=== PATIENT | male | born 1960 | race Caucasian/White ===

== ENCOUNTER 2024-05-18 12:46 | Emergency (ER) | payer BC, SELFPAY ==
[2024-05-18 12:48] VITALS: BP 145/101
--- NOTE | 2024-05-18 13:47 | ED.GENMED ---
History of Present Illness
General
Chief Complaint: Headache
Time Seen by Provider: 05/18/24 13:27
History of Present Illness
History of Present Illness:
Patient is a 64-year-old male with history of hypertension, hyperlipidemia presenting to the emergency department with a headache. Patient states that he has had a headache for the past 7 weeks. It is left-sided frontoparietal. It is constant 8
out of 10. It is a dull ache with occasional sharp pain. It has never been a thunderclap headache. Is not the worst headache of his life. He has been taking Celebrex for his headache. Does improve the pain though does not resolve it.
Occasionally he has photophobia. No phonophobia. No fevers or chills. No neck pain. No numbness or tingling. No weakness. No recent trauma. He has taken prednisone which did not alleviate the pain. He is currently having a headache though it
is bearable. He does have a prescription for outpatient CT scan however is unable to schedule it for many months.
Past History
Past History
ED Past Medical History: HTN, Hypercholesterolemia and Hypothyroidism (Hank's thyroiditis)
ED Past Surgical History: Other (N/A)
Social History
Tobacco: Non-smoker
Alcohol: Occasional
Personal:
Living: with family
Phy Exam
Physical Exam
Physical Exam:
GENERAL: in no acute distress
HEENT: normocephalic, extraocular movements intact, moist oral mucosa
NECK: normal inspection
RESPIRATORY: no respiratory distress, clear to auscultation bilaterally
CARDIOVASCULAR: regular rate and rhythm
ABDOMEN/: soft, non-distended, non-tender to palpation, no rebound or guarding
EXTREMITIES: non-tender, no edema/swelling
NEUROLOGIC: alert and oriented x 3, cranial nerves II-XII intact, right upper extremity strength 5/5, left upper extremity strength 5/5, right lower extremity strength 5/5, left lower extremity strength 5/5, normal sensation to light touch, normal
[id number] and [id number], gait not tested formally
SKIN: warm
Course
Orders/Labs/Results
Orders:
Orders
05/18/24 13:46
CT Head W/o Iv Contrast Urgent
Comment:
Reason For Exam: headache
Vital Signs
Initial and Last Documented VS:
Initial Vital Signs
Temp Pulse Resp BP Pulse Ox
98.3 F 103 18 145/101 94
05/18/24 12:48 05/18/24 12:48 05/18/24 12:48 05/18/24 12:48 05/18/24 12:48
Last Documented Vital Signs
Temp Pulse Resp BP Pulse Ox
98.3 F 98 18 141/82 94
05/18/24 12:48 05/18/24 14:00 05/18/24 12:48 05/18/24 14:00 05/18/24 12:48
MDM/Problems Addressed
Differential Diagnosis Includes:
Patient is a 64-year-old man with history of hypertension, hyperlipidemia presenting to the emergency department with headache. Vitals unremarkable and headache does not show any neurological deficits. Unclear cause of the migraine but likely
migraine versus tension type. No red flags. Neuroexam does not show any focal neurofindings or signs of manage amiss. History and exam not consistent with intracranial bleed. History exam also unlikely to be meningitis or brain abscess or
temporal arteritis. Given no visual deficits less likely to be acute angle closure glaucoma. I did offer patient blood work to make sure there is no metabolic derangement however he declined at this time. Will proceed with CT scan of the head. I
did offer patient a migraine cocktail however he does not want one at this time and would prefer to take his home Celebrex. Will reassess after CT scan.
*Critical Care Note
Total Time (30-74mins, 75-104mins- exclusive of procedures): Not Applicable
Update Note
Update Note:
CT scan is negative. Patient's pain has improved since the Celebrex. He is requesting discharge at this time with as appropriate. He will follow-up with PCP as well as neurology for outpatient MRI. Will discharge at this time.
ED Attending Note
-
Portions of this chart may have been created with voice recognition software.� Occasional wrong word or��sound alike� substitutions may have occurred due to the inherent limitations of voice recognition software.
Discharge Plan
Departure
Patient Disposition: Home (Routine Discharge)
Date of Disposition: 05/18/24
Time of Disposition: 15:18
Patient with high blood pressure during this ER visit?: No
Discharge Problem:
Headache
Instructions: Headache, Adult (DC)
Prescriptions:
No Action
metoprolol succinate 100 mg Tablet Extended Release 24 Hr
100 mg PO DAILY
amlodipine 10 mg Tablet
10 mg PO DAILY
vitamin B complex Tablet
1 tab PO DAILY
allopurinol 300 mg Tablet
300 mg PO DAILY
hydrochlorothiazide 25 mg Tablet
25 mg PO DAILY
testosterone 1 % (25 mg/2.5gram) Gel In Packet
1 packet TRANSDERMAL DAILY
levothyroxine 112 mcg Tablet
224 mcg PO DAILY
rosuvastatin 20 mg Tablet
20 mg PO DAILY
turmeric root extract 500 mg Capsule
500 mg PO DAILY
Referrals:
Basim Chu DO [Family Provider] -
Activity Restrictions/Additional Instructions:
You were seen in the Emergency Department today for headache. Your CT scan here was unremarkable.
We would like for you to follow up with your primary care physician for further evaluation. If you experience fever, worsening of your symptoms, or develop any other new or concerning symptoms, please return to the Emergency Department immediately.
Please see the attached sheet for additional information.
Interventions
Interventions:
*Risk Screen - Suicide Last Done: 05/18/24 12:48
*General Assessment Last Done: 05/18/24 12:48
*Neglect/Abuse Screening Last Done: 05/18/24 12:48
ED- Fall Risk Assessment Last Done: 05/18/24 13:20
*ED COVID-19 Vaccine History Last Done: 05/18/24 12:48
ED- Neurological Assessment Last Done: 05/18/24 13:20
Discharge Date and Time
Print Language: [facility]
[2024-05-18 14:00] VITALS: BP 141/82
[2024-05-18 14:07] VITALS: BMI 28.7
[2024-05-18 15:30] VITALS: BP 131/96
== END 2024-05-18 15:31 | disposition home or self-care (01) ==
LOC: EMR 12:46
PROVIDERS: EMERGENCY PHYSICIAN Student in an Organized Health Care Education/Training Program; FAMILY PHYSICIAN Family Medicine
DX: R51.9 Headache, unspecified (principal); I10 Essential (primary) hypertension; E78.00 Pure hypercholesterolemia, unspecified
CPT/HCPCS: 99284; 70450

== ENCOUNTER → 2024-06-24 13:26 | Outpatient (REF) | payer BC, SELFPAY | LOC: PAVMRI 13:26 | PROVIDERS: ATTENDING PHYSICIAN Family Medicine | DX: R51.9 Headache, unspecified (principal); G89.29 Other chronic pain | CPT/HCPCS: 70553; A9575 ==